=== PATIENT | male | born 1970 | race Caucasian/White ===

== ENCOUNTER 2019-05-15 00:14 | Emergency (ER) | payer OTHER ==
[~2019-05-15] VITALS: Ht 167.6 cm; Wt 86.2 kg
[2019-05-15 00:33] VITALS: Ht 167.6 cm; Wt 86.2 kg
[2019-05-15 02:09] VITALS: BP 122/80
== END 2019-05-15 02:09 | disposition home or self-care (01) ==
LOC: ED 00:14
DX: S20.212A Contusion of left front wall of thorax, initial encounter (principal); Y04.8XXA Assault by other bodily force, initial encounter; Y93.89 Activity, other specified; Y92.89 Other specified places as the place of occurrence of the external cause; Y99.8 Other external cause status
CPT/HCPCS: J1885